=== PATIENT | male | born 1950 | race Caucasian/White ===

== ENCOUNTER 2024-01-05 14:33 | Inpatient (IN) | payer MEDICARE, MEDICAID ==
[~2024-01-05] VITALS: Ht 172.7 cm; Wt 59.0 kg
[~2024-01-05 14:33] MED LIST: EPIN11.7 IH; FURO20TA4 PO; IPRA3AMP9 NEB
[2024-01-05 15:06] LABS: BASOPHILS % (AUTO) 0.2 % (0-1); EOSINOPHILS % (AUTO) 0 % (0-6); HEMATOCRIT 44.8 % (42.0-52.0); HEMOGLOBIN 14.9 g/dl (14.0-17.9); LYMPHOCYTES # (AUTO) 0.5 X10'3 (1.1-4.8); LYMPHOCYTES % (AUTO) 9.3 % (21-51); MEAN CORPUSCULAR HGB CONC 33.2 g/dL (33.0-36.5); MEAN CORPUSCULAR VOLUME 99.4 FL (78-98); MEAN PLATELET VOLUME 7.1 FL (7.4-10.4); MONOCYTES # (AUTO) 0.3 X10'3 (0-0.9); MONOCYTES % (AUTO) 6.7 % (2-12); NEUTROPHILS # (AUTO) 4.3 X10'3 (1.8-7.7); NEUTROPHILS % (AUTO) 83.8 % (42-75); PLATELET COUNT 226 X10'3 (140-440); RED BLOOD COUNT 4.51 X10'6 (4.70-6.10); RED CELL DISTRIBUTION WIDTH 15.5 % (11.5-14.5); WHITE BLOOD COUNT 5.1 X10'3 (4.5-11.0)
[2024-01-05 15:23] LABS: ALBUMIN 3.5 G/DL (3.4-5.0); ANION GAP 4 (8-16); BLOOD UREA NITROGEN 21 MG/DL (7-18); BUN/CREATININE RATIO 20.8 (10.0-20.0); CALCIUM 9.1 MG/DL (8.5-10.1); CHLORIDE 93 MMOL/L (99-107); CREATININE 1.01 MG/DL (0.60-1.10); GLUCOSE 146 MG/DL (70-104); POTASSIUM 4.8 MMOL/L (3.5-5.1); SODIUM 134 MMOL/L (135-145); TOTAL CARBON DIOXIDE 36.7 MMOL/L (24-32); eCRCL 54 ML/MIN; eGFR 72 ML/MIN
[2024-01-05] MEDS: diltiazem 5mg/ml 5ml inj. IV ONE (15:50)
[2024-01-05] MEDS: normal saline 1000ml 1,000 ML IV ONE ×2 (15:57→15:58)
[2024-01-05] MEDS ORDERED: ipratropium/albuterol 3ml nebule NEB PRN ×2 (16:00→17:20)
[2024-01-05] MEDS ORDERED: magnesium Cl slow-release 64mg tablet PO PRN (16:40)
[2024-01-05] MEDS ORDERED: magnesium sulf-water 4G/100mL 100 ML IV PRN (16:40)
[2024-01-05] MEDS ORDERED: magnesium sulf-water 2g/50mL 50 ML IV PRN (16:40)
[2024-01-05] MEDS ORDERED: potassium Cl 40MEQ/1/2NS 520ml 520 ML IV PRN (16:40)
[2024-01-05] MEDS ORDERED: potassium Cl 20 mEq SR tablet PO PRN ×2 (16:40)
[2024-01-05] MEDS ORDERED: docusate sod 100mg capsule PO PRN (16:40)
[2024-01-05] MEDS ORDERED: metoclopramide 5 mg/ml inj IV PRN (16:40)
[2024-01-05] MEDS ORDERED: morphine 2 MG/ML inj. syringe IV PRN ×2 (16:40)
[2024-01-05] MEDS ORDERED: mag hydrox/Alum hydrox/simeth 30ml oral suspension PO PRN (16:40)
[2024-01-05] MEDS ORDERED: ondansetron/PF 4mg/2ml inj IV PRN (16:40)
[2024-01-05] MEDS: diltiazem-NS 100mg/100ml 100 ML IV SCH (16:50)
[2024-01-05] MEDS: PERFLUTREN PROTEIN-A MICROSPHR (Optison) 0.22 MG/ML 3ML VIAL IV ONE (16:56)
[2024-01-05 16:57] LABS: HEMOGLOBIN A1C 5.8 % (4.5-6.2)
[2024-01-05 17:06] LABS: PRO BRAIN NATRIURETIC PEPTIDE 9745 PG/ML (0-125); THYROID STIMULATING HORMONE 5.93 ulU/ml (0.34-4.50)
[2024-01-05 17:46] LABS: BILIRUBIN,URINE SMALL (Neg); CLARITY,URINE SLIGHTLY CLOUDY (Clear); COLOR,URINE YELLOW (Yellow); GLUCOSE, URINE NEGATIVE (Neg); KETONES,URINE NEGATIVE (Neg); LEUKOCYTE ESTERASE ,URINE NEGATIVE (Neg); NITRITES, URINE NEGATIVE (Neg); OCCULT BLOOD,URINE MODERATE (Neg); PROTEIN,URINE 100 mg/dl (Neg); UROBILINOGEN,URINE 0.2 E.U/dL (0.2-1.0)
[2024-01-05 17:53] LABS: UA COLLECTION TYPE VOIDED
[2024-01-05 17:55] LABS: MUCUS STRANDS FEW /LPF (Neg); RBC,URINE TNTC /HPF (0-2); SQUAMOUS EPITHELIAL CELL,UR MODERATE /LPF (FEW)
[2024-01-05 17:56] LABS: BACTERIA,URINE 1+ /HPF (Neg); WBC,URINE 30-50 /HPF (0-4)
[2024-01-05] MEDS: enoxaparin 30mg/0.3ml syringe SUBCUT SCH (18:01)
[2024-01-05] MEDS: diltiazem CD 180mg cap (once-daily) PO SCH (18:01)
[2024-01-05] MEDS: methylPREDNISolone sod succ 125mg/2ml vial IV ONE (18:01)
[2024-01-05] MEDS: furosemide 40mg/4ml inj IV STA (18:01)
[2024-01-05] MEDS: ipratropium/albuterol 3ml nebule NEB STA (18:01)
[2024-01-05 18:04] VITALS: PULSE 88; RESP 25; O2SAT 94
[2024-01-05] MEDS: K and/or MAG REPLACEMENT MC SCH (18:29)
[2024-01-05] MEDS: RITONAVIR PO SCH (19:16)
[2024-01-05] MEDS: NIRMATRELVIR PO SCH (19:16)
[2024-01-05] MEDS: [UNRECOGNIZED DRUG - OTHER] PO SCH (19:16)
[2024-01-05] MEDS: pantoprazole 40mg Tablet.DR PO SCH (19:17)
[2024-01-05] MEDS: guaiFENesin ER 600mg tablet PO STA (19:17)
[2024-01-05 19:22] LABS: FREE T4 (FREE THYROXINE) 0.71 NG/DL (0.73-1.40)
[2024-01-05] MEDS ORDERED: heparin, porcine 5000 units/ml vial SQ SCH (20:00)
[2024-01-05] MEDS: metoprolol tartrate 1mg/ml inj IV SCH (20:07)
[2024-01-05 20:40] VITALS: PULSE 76; RESP 22; O2SAT 95
[2024-01-06] VITALS (10 sets, daily range): BP systolic 99–121; BP diastolic 56–69; PULSE 58–73; RESP 17–25; TEMP 97–98; O2SAT 91–98
[2024-01-06] MEDS ORDERED: FLUT1BLS4 INH (00:53)
[2024-01-06 03:13] LABS: BASOPHILS % (AUTO) 0.5 % (0-1); EOSINOPHILS % (AUTO) 0 % (0-6); HEMATOCRIT 40.8 % (42.0-52.0); HEMOGLOBIN 13.7 g/dl (14.0-17.9); LYMPHOCYTES # (AUTO) 0.2 X10'3 (1.1-4.8); MEAN CORPUSCULAR HEMOGLOBIN 33.4 PG (27.0-31.0); MEAN CORPUSCULAR HGB CONC 33.6 g/dL (33.0-36.5); MEAN CORPUSCULAR VOLUME 99.4 FL (78-98); MEAN PLATELET VOLUME 7.3 FL (7.4-10.4); MONOCYTES # (AUTO) 0.1 X10'3 (0-0.9); MONOCYTES % (AUTO) 1.7 % (2-12); NEUTROPHILS # (AUTO) 3.7 X10'3 (1.8-7.7); NEUTROPHILS % (AUTO) 91.8 % (42-75); PLATELET COUNT 215 X10'3 (140-440); RED BLOOD COUNT 4.11 X10'6 (4.70-6.10); RED CELL DISTRIBUTION WIDTH 15.6 % (11.5-14.5); WHITE BLOOD COUNT 4.1 X10'3 (4.5-11.0)
[2024-01-06 03:31] LABS: ALANINE AMINOTRANSFERASE 40 U/L (12-78); ALBUMIN/GLOBULIN RATIO 0.9 (1.1-1.5); ALKALINE PHOSPHATASE 85 IU/L (46-116); ANION GAP 7 (8-16); ASPARTATE AMINO TRANSFERASE 37 U/L (10-37); BILIRUBIN,TOTAL 0.8 MG/DL (0.1-1.0); BLOOD UREA NITROGEN 23 MG/DL (7-18); BUN/CREATININE RATIO 24.2 (10.0-20.0); CALCIUM 8.4 MG/DL (8.5-10.1); CHLORIDE 96 MMOL/L (99-107); CHOL/HDL RATIO 3.5 (0.00-4.99); CHOLESTEROL 152 MG/DL (0-200); CREATININE 0.95 MG/DL (0.60-1.10); GLUCOSE 142 MG/DL (70-104); HDL CHOLESTEROL 43 MG/DL (35-60); LDL CHOLESTEROL 93 MG/DL (50-100); MAGNESIUM 1.9 MG/DL (1.5-2.4); SODIUM 134 MMOL/L (135-145); TOTAL CARBON DIOXIDE 31.5 MMOL/L (24-32); TOTAL PROTEIN 6.5 G/DL (6.4-8.2); TRIGLYCERIDES 52 MG/DL (20-135); eCRCL 58 ML/MIN; eGFR 78 ML/MIN
[2024-01-06] MEDS: methylPREDNISolone sod succ 125mg/2ml vial IV SCH (08:00)
[2024-01-06] MEDS: furosemide 20 MG/2 ML vial IV SCH (08:00)
[2024-01-06] MEDS: guaiFENesin ER 600mg tablet PO SCH (08:18)
[2024-01-06] MEDS: magnesium hydroxide 30ml (MOM) UD suspension PO PRN (08:18)
[2024-01-06] MEDS: albuterol 60 PUFF/8GM Inhaler (90mcg/1 puff) IH PRN (13:23)
[2024-01-06] MEDS: levoTHYROXINE 75mcg tablet PO SCH (15:00)
[2024-01-06] MEDS: acetaminophen 325mg tablet PO PRN (20:24)
[2024-01-07] VITALS (8 sets, daily range): BP systolic 105–137; BP diastolic 56–89; PULSE 65–82; RESP 15–30; TEMP 97.1–98; O2SAT 92–99
[2024-01-07 07:57] LABS: BASOPHILS % (AUTO) 0 % (0-1); EOSINOPHILS % (AUTO) 0 % (0-6); HEMATOCRIT 39.9 % (42.0-52.0); HEMOGLOBIN 13.4 g/dl (14.0-17.9); LYMPHOCYTES # (AUTO) 0.2 X10'3 (1.1-4.8); LYMPHOCYTES % (AUTO) 2.3 % (21-51); MEAN CORPUSCULAR HEMOGLOBIN 33.3 PG (27.0-31.0); MEAN CORPUSCULAR HGB CONC 33.5 g/dL (33.0-36.5); MEAN CORPUSCULAR VOLUME 99.2 FL (78-98); MEAN PLATELET VOLUME 7.6 FL (7.4-10.4); MONOCYTES # (AUTO) 0.4 X10'3 (0-0.9); MONOCYTES % (AUTO) 4.1 % (2-12); NEUTROPHILS # (AUTO) 9.5 X10'3 (1.8-7.7); NEUTROPHILS % (AUTO) 93.6 % (42-75); PLATELET COUNT 232 X10'3 (140-440); RED BLOOD COUNT 4.02 X10'6 (4.70-6.10); RED CELL DISTRIBUTION WIDTH 15.4 % (11.5-14.5); WHITE BLOOD COUNT 10.2 X10'3 (4.5-11.0)
[2024-01-07 08:55] LABS: ALANINE AMINOTRANSFERASE 38 U/L (12-78); ALBUMIN 3.2 G/DL (3.4-5.0); ALBUMIN/GLOBULIN RATIO 0.9 (1.1-1.5); ALKALINE PHOSPHATASE 75 IU/L (46-116); ANION GAP 7 (8-16); ASPARTATE AMINO TRANSFERASE 31 U/L (10-37); BILIRUBIN,TOTAL 0.5 MG/DL (0.1-1.0); BLOOD UREA NITROGEN 42 MG/DL (7-18); BUN/CREATININE RATIO 33.1 (10.0-20.0); CALCIUM 8.4 MG/DL (8.5-10.1); CHLORIDE 91 MMOL/L (99-107); CREATININE 1.27 MG/DL (0.60-1.10); GLUCOSE 131 MG/DL (70-104); MAGNESIUM 1.9 MG/DL (1.5-2.4); POTASSIUM 5.2 MMOL/L (3.5-5.1); SODIUM 129 MMOL/L (135-145); TOTAL CARBON DIOXIDE 31.4 MMOL/L (24-32); TOTAL PROTEIN 6.6 G/DL (6.4-8.2); eCRCL 43 ML/MIN; eGFR 56 ML/MIN
[2024-01-07] MEDS ORDERED: FURO-150 PO (14:09)
[2024-01-07] MEDS ORDERED: METO-395 PO (14:09)
[2024-01-07] MEDS ORDERED: EMPA10TA PO (14:09)
[2024-01-07] MEDS ORDERED: LEVO75TA7 PO (14:09)
[2024-01-07] MEDS ORDERED: SACU1TAB PO (14:09)
[2024-01-07] MEDS ORDERED: ALBU8HFA IH (14:10)
[2024-01-07] MEDS: metoprolol succinate 25mg (24-HOUR) SR. Tablet PO SCH (14:41)
[2024-01-07] MEDS: EMPAGLIFLOZIN 10 MG TABLET PO SCH (14:43)
[2024-01-07] MEDS: MULTIVIT-MIN/FERROUS GLUCONATE 9 MG/15 ML LIQUID PO SCH (17:51)
[2024-01-07] MEDS: sacubitril/valsartan 24mg-26mg tablet PO SCH (21:43)
[2024-01-07] MEDS ORDERED: ipratropium/albuterol 3ml nebule NEB PRN (21:50)
[2024-01-08] VITALS (7 sets, daily range): BP systolic 97–115; BP diastolic 34–63; PULSE 61–73; RESP 18–28; TEMP 97.1–98.2; O2SAT 90–99
[2024-01-08 07:16] LABS: BASOPHILS # (AUTO) 0.1 X10'3 (0-0.2); BASOPHILS % (AUTO) 1.1 % (0-1); EOSINOPHILS % (AUTO) 0 % (0-6); HEMATOCRIT 41.3 % (42.0-52.0); HEMOGLOBIN 13.8 g/dl (14.0-17.9); LYMPHOCYTES # (AUTO) 0.2 X10'3 (1.1-4.8); LYMPHOCYTES % (AUTO) 1.7 % (21-51); MEAN CORPUSCULAR HEMOGLOBIN 33.1 PG (27.0-31.0); MEAN CORPUSCULAR HGB CONC 33.4 g/dL (33.0-36.5); MEAN PLATELET VOLUME 7.6 FL (7.4-10.4); MONOCYTES # (AUTO) 0.3 X10'3 (0-0.9); MONOCYTES % (AUTO) 2.8 % (2-12); NEUTROPHILS # (AUTO) 9.9 X10'3 (1.8-7.7); NEUTROPHILS % (AUTO) 94.4 % (42-75); PLATELET COUNT 223 X10'3 (140-440); RED BLOOD COUNT 4.17 X10'6 (4.70-6.10); RED CELL DISTRIBUTION WIDTH 15.1 % (11.5-14.5); WHITE BLOOD COUNT 10.5 X10'3 (4.5-11.0)
[2024-01-08 08:03] LABS: ALANINE AMINOTRANSFERASE 36 U/L (12-78); ALBUMIN 3.3 G/DL (3.4-5.0); ALKALINE PHOSPHATASE 71 IU/L (46-116); ANION GAP 6 (8-16); ASPARTATE AMINO TRANSFERASE 30 U/L (10-37); BILIRUBIN,TOTAL 0.4 MG/DL (0.1-1.0); BLOOD UREA NITROGEN 53 MG/DL (7-18); BUN/CREATININE RATIO 42.4 (10.0-20.0); CALCIUM 7.9 MG/DL (8.5-10.1); CHLORIDE 91 MMOL/L (99-107); CREATININE 1.25 MG/DL (0.60-1.10); GLUCOSE 119 MG/DL (70-104); MAGNESIUM 2.2 MG/DL (1.5-2.4); POTASSIUM 5.5 MMOL/L (3.5-5.1); SODIUM 128 MMOL/L (135-145); TOTAL CARBON DIOXIDE 31.4 MMOL/L (24-32); TOTAL PROTEIN 6.7 G/DL (6.4-8.2); eCRCL 44 ML/MIN; eGFR 57 ML/MIN
[2024-01-08] MEDS: spironolactone 25 MG tablet PO SCH (08:30)
[2024-01-08] MEDS ORDERED: APIX5TAB3 PO (12:07)
[2024-01-08] MEDS ORDERED: IPRA3AMP9 NEB (12:07)
[2024-01-08] MEDS ORDERED: PRED10TA23 PO (12:07)
[2024-01-08 12:45] LABS: ALANINE AMINOTRANSFERASE 37 U/L (12-78); ALBUMIN 3.3 G/DL (3.4-5.0); ALKALINE PHOSPHATASE 70 IU/L (46-116); ANION GAP 4 (8-16); ASPARTATE AMINO TRANSFERASE 32 U/L (10-37); BILIRUBIN,TOTAL 0.5 MG/DL (0.1-1.0); BLOOD UREA NITROGEN 50 MG/DL (7-18); BUN/CREATININE RATIO 41.3 (10.0-20.0); CHLORIDE 90 MMOL/L (99-107); CREATININE 1.21 MG/DL (0.60-1.10); GLUCOSE 114 MG/DL (70-104); POTASSIUM 5.3 MMOL/L (3.5-5.1); SODIUM 127 MMOL/L (135-145); TOTAL PROTEIN 6.6 G/DL (6.4-8.2); eCRCL 45 ML/MIN; eGFR 59 ML/MIN
[2024-01-08] MEDS ORDERED: SPIR25TA5 PO (15:31)
[2024-01-08] MEDS ORDERED: apixaban 5mg tablet PO SCH (20:00)
[2024-01-09] MEDS ORDERED: metoprolol succinate 25mg (24-HOUR) SR. Tablet PO SCH (08:00)
[2024-01-09] MEDS ORDERED: spironolactone 25 MG tablet PO SCH (08:30)
== END 2024-01-08 15:48 | disposition home health service (06) | DRG 177 ==
LOC: ER 14:34 → ED HOLD 16:31 → EDBEDREQ 23:06 → PCU 3S 01-06 05:00
PROVIDERS: ADMIT Internal Medicine; ATTEND Internal Medicine
DX: U07.1 COVID-19 (principal); I50.43 Acute on chronic combined systolic (congestive) and diastolic (congestive) heart failure; J96.00 Acute respiratory failure, unspecified whether with hypoxia or hypercapnia; I48.92 Unspecified atrial flutter; I42.0 Dilated cardiomyopathy; J44.1 Chronic obstructive pulmonary disease with (acute) exacerbation; J06.9 Acute upper respiratory infection, unspecified; I48.91 Unspecified atrial fibrillation; F17.210 Nicotine dependence, cigarettes, uncomplicated; D72.810 Lymphocytopenia; R73.9 Hyperglycemia, unspecified; D53.9 Nutritional anemia, unspecified; E78.5 Hyperlipidemia, unspecified; I50.82 Biventricular heart failure; I34.0 Nonrheumatic mitral (valve) insufficiency; Z79.899 Other long term (current) drug therapy; Z88.8 Allergy status to other drugs, medicaments and biological substances; Z91.148 Patient's other noncompliance with medication regimen for other reason
CPT/HCPCS: 36415; 71045; 80048; 80053; 80061; 81001; 82948; 83036; 83605; 83735; 83880; 84145; 84439; 84443; 84484; 85025; 87040; 87081; 87088; 87502; 87503; 87811; 93005; 93306; 94640; 94664; 94668; 94760; 96374; 97116; 97162; 97530; 99291; A4615; A6213; G0378; J1650; J1940; J2919; J3490; J7030

== ENCOUNTER 2024-04-25 13:21 | Inpatient (IN) | payer MEDICARE, MEDICAID ==
[~2024-04-25] VITALS: Ht 172.7 cm; Wt 53.0 kg
[~2024-04-25 13:21] MED LIST changes: +ALBU8HFA IH; +APIX5TAB3 PO; +EMPA10TA PO; -EPIN11.7 IH; +FLUT1BLS4 INH; +FURO-150 PO; -FURO20TA4 PO; +LEVO75TA7 PO; +METO-395 PO; +SACU1TAB PO; +SPIR25TA5 PO
[2024-04-25 14:00] LABS: BASOPHILS % (AUTO) 0.3 % (0-1); EOSINOPHILS % (AUTO) 0.2 % (0-6); HEMATOCRIT 43.7 % (42.0-52.0); HEMOGLOBIN 14.7 g/dl (14.0-17.9); LYMPHOCYTES # (AUTO) 0.6 X10'3 (1.1-4.8); MEAN CORPUSCULAR HGB CONC 33.7 g/dL (33.0-36.5); MEAN PLATELET VOLUME 6.5 FL (7.4-10.4); MONOCYTES # (AUTO) 0.6 X10'3 (0-0.9); MONOCYTES % (AUTO) 9.7 % (2-12); NEUTROPHILS # (AUTO) 4.5 X10'3 (1.8-7.7); NEUTROPHILS % (AUTO) 78.8 % (42-75); PLATELET COUNT 298 X10'3 (140-440); RED BLOOD COUNT 4.46 X10'6 (4.70-6.10); RED CELL DISTRIBUTION WIDTH 18.2 % (11.5-14.5); WHITE BLOOD COUNT 5.8 X10'3 (4.5-11.0)
[2024-04-25] MEDS: normal saline 1000ml 1,000 ML IV SCH ×2 (14:38→17:15)
[2024-04-25 15:03] LABS: ALANINE AMINOTRANSFERASE 15 U/L (12-78); ALBUMIN 3.5 G/DL (3.4-5.0); ALBUMIN/GLOBULIN RATIO 0.9 (1.1-1.5); ALKALINE PHOSPHATASE 86 IU/L (46-116); ANION GAP 9 (8-16); ASPARTATE AMINO TRANSFERASE 18 U/L (10-37); BILIRUBIN,TOTAL 0.6 MG/DL (0.1-1.0); BLOOD UREA NITROGEN 14 MG/DL (7-18); BUN/CREATININE RATIO 19.4 (10.0-20.0); CALCIUM 8.8 MG/DL (8.5-10.1); CHLORIDE 100 MMOL/L (99-107); CREATININE 0.72 MG/DL (0.60-1.10); GLUCOSE 92 MG/DL (70-104); LIPASE 12 U/L (16-77); POTASSIUM 4.4 MMOL/L (3.5-5.1); SODIUM 138 MMOL/L (135-145); TOTAL CARBON DIOXIDE 28.9 MMOL/L (24-32); TOTAL PROTEIN 7.3 G/DL (6.4-8.2); eCRCL 69 ML/MIN; eGFR > 90 ML/MIN
[2024-04-25] MEDS ORDERED: iohexol 300mg/ml 100ml inj. ONE (15:17)
[2024-04-25] MEDS ORDERED: HYDROcodone/acetaminophen 5mg/325mg tablet PO PRN (16:30)
[2024-04-25] MEDS ORDERED: magnesium sulf-water 4G/100mL 100 ML IV PRN (16:30)
[2024-04-25] MEDS ORDERED: potassium Cl 20 mEq SR tablet PO PRN (16:30)
[2024-04-25] MEDS ORDERED: magnesium Cl slow-release 64mg tablet PO PRN (16:30)
[2024-04-25] MEDS ORDERED: acetaminophen 325mg tablet PO PRN ×2 (16:30)
[2024-04-25] MEDS ORDERED: ondansetron/PF 4mg/2ml inj IV PRN (16:30)
[2024-04-25] MEDS ORDERED: HYDROcodone/acetaminophen 10/325mg tab PO PRN (16:30)
[2024-04-25] MEDS ORDERED: magnesium sulf-water 2g/50mL 50 ML IV PRN (16:30)
[2024-04-25] MEDS ORDERED: potassium Cl 40MEQ/1/2NS 520ml 520 ML IV PRN (16:30)
[2024-04-25] MEDS ORDERED: morphine 2 MG/ML inj. syringe IV PRN ×2 (16:30)
[2024-04-25] MEDS: nicotine 21mg patch - 24 hr TD SCH (17:15)
[2024-04-25] MEDS: CefTRIAXone 2gm/D5W 50ml BAG 50 ML IV ONE (17:15)
[2024-04-25 18:34] LABS: BILIRUBIN,URINE NEGATIVE (Neg); CLARITY,URINE CLEAR (Clear); COLOR,URINE YELLOW (Yellow); GLUCOSE, URINE NEGATIVE (Neg); KETONES,URINE TRACE mg/dl (Neg); LEUKOCYTE ESTERASE ,URINE NEGATIVE (Neg); NITRITES, URINE NEGATIVE (Neg); OCCULT BLOOD,URINE TRACE-INTACT (Neg); PROTEIN,URINE NEGATIVE (Neg)
[2024-04-25 18:36] LABS: UA COLLECTION TYPE NON-SPECIFIED
[2024-04-25 19:05] LABS: BACTERIA,URINE FEW /HPF (Neg); CAL OXALATE CRYSTALS 1+ /HPF (NEGATIVE); RBC,URINE 0-2 /HPF (0-2); SQUAMOUS EPITHELIAL CELL,UR FEW /LPF (FEW); WBC,URINE 0-4 /HPF (0-4)
[2024-04-25] MEDS ORDERED: iohexol 350MG/ML 100ml bottle IV ONE (20:05)
[2024-04-25] MEDS: heparin, porcine 5000 units/ml vial SQ SCH (20:34)
[2024-04-25 22:11] VITALS: BP 162/74; PULSE 79; RESP 18; TEMP 97.2; O2SAT 92
[2024-04-25] MEDS: albuterol 2.5 MG/3 ML nebule NEB PRN (22:30)
[2024-04-25 22:36] VITALS: PULSE 84; RESP 16; O2SAT 89
[2024-04-25 22:42] VITALS: PULSE 79; RESP 16
[2024-04-26] VITALS (13 sets, daily range): BP systolic 149–174; BP diastolic 60–71; PULSE 65–92; RESP 16–20; TEMP 97.3–98.6; O2SAT 90–95
[2024-04-26 05:08] LABS: BASOPHILS % (AUTO) 0.3 % (0-1); EOSINOPHILS % (AUTO) 0.2 % (0-6); HEMATOCRIT 41.6 % (42.0-52.0); LYMPHOCYTES # (AUTO) 0.6 X10'3 (1.1-4.8); LYMPHOCYTES % (AUTO) 11.4 % (21-51); MEAN CORPUSCULAR HEMOGLOBIN 33.4 PG (27.0-31.0); MEAN CORPUSCULAR HGB CONC 33.7 g/dL (33.0-36.5); MEAN CORPUSCULAR VOLUME 99.1 FL (78-98); MEAN PLATELET VOLUME 6.8 FL (7.4-10.4); MONOCYTES # (AUTO) 0.6 X10'3 (0-0.9); NEUTROPHILS # (AUTO) 4.2 X10'3 (1.8-7.7); NEUTROPHILS % (AUTO) 77.1 % (42-75); PLATELET COUNT 302 X10'3 (140-440); RED BLOOD COUNT 4.19 X10'6 (4.70-6.10); RED CELL DISTRIBUTION WIDTH 17.7 % (11.5-14.5); WHITE BLOOD COUNT 5.4 X10'3 (4.5-11.0)
[2024-04-26 05:20] LABS: ANION GAP 7 (8-16); BLOOD UREA NITROGEN 12 MG/DL (7-18); BUN/CREATININE RATIO 17.4 (10.0-20.0); CALCIUM 8.5 MG/DL (8.5-10.1); CHLORIDE 101 MMOL/L (99-107); CREATININE 0.69 MG/DL (0.60-1.10); GLUCOSE 64 MG/DL (70-104); POTASSIUM 4.1 MMOL/L (3.5-5.1); SODIUM 138 MMOL/L (135-145); eCRCL 71 ML/MIN; eGFR > 90 ML/MIN
[2024-04-26] MEDS: albuterol 2.5 MG/3 ML nebule NEB SCH (11:15)
[2024-04-26] MEDS ORDERED: APIX5TAB3 PO (17:45)
[2024-04-26] MEDS ORDERED: METO-395 PO (17:45)
[2024-04-26] MEDS ORDERED: SACU1TAB PO (17:45)
[2024-04-26] MEDS ORDERED: FURO-150 PO (17:45)
[2024-04-26] MEDS ORDERED: EMPA10TA PO (17:45)
[2024-04-26] MEDS ORDERED: FLUT1BLS4 INH (17:45)
[2024-04-26] MEDS ORDERED: SPIR25TA5 PO (17:45)
[2024-04-26] MEDS ORDERED: ALBU18HF2 INH (17:45)
[2024-04-26] MEDS ORDERED: ATR0.5NEB NEB (17:45)
[2024-04-26] MEDS ORDERED: LEVO75TA PO (17:45)
[2024-04-26] MEDS ORDERED: diatrozoate meglu/diatrozoate sod (37% iodine) 120ML oral solution PO ONE (22:20)
[2024-04-26] MEDS: diatr meglu/diatrizoate 30ml oral sol.-(3 dose) bottle PO ONE (22:59)
[2024-04-27] VITALS (17 sets, daily range): BP systolic 116–164; BP diastolic 50–66; PULSE 56–101; RESP 14–27; TEMP 97.6–98.4; O2SAT 90–96
[2024-04-27 06:19] LABS: ALBUMIN 2.9 G/DL (3.4-5.0); ANION GAP 6 (8-16); BLOOD UREA NITROGEN 12 MG/DL (7-18); BUN/CREATININE RATIO 17.9 (10.0-20.0); CALCIUM 8.5 MG/DL (8.5-10.1); CHLORIDE 102 MMOL/L (99-107); CREATININE 0.67 MG/DL (0.60-1.10); GLUCOSE 66 MG/DL (70-104); POTASSIUM 3.7 MMOL/L (3.5-5.1); SODIUM 141 MMOL/L (135-145); TOTAL CARBON DIOXIDE 32.9 MMOL/L (24-32); eCRCL 74 ML/MIN; eGFR > 90 ML/MIN
[2024-04-27 06:25] LABS: BASOPHILS % (AUTO) 0.4 % (0-1); EOSINOPHILS % (AUTO) 0.3 % (0-6); HEMATOCRIT 36.4 % (42.0-52.0); HEMOGLOBIN 12.4 g/dl (14.0-17.9); LYMPHOCYTES # (AUTO) 0.8 X10'3 (1.1-4.8); LYMPHOCYTES % (AUTO) 17.8 % (21-51); MEAN CORPUSCULAR HEMOGLOBIN 33.1 PG (27.0-31.0); MEAN CORPUSCULAR VOLUME 97.4 FL (78-98); MEAN PLATELET VOLUME 6.8 FL (7.4-10.4); MONOCYTES # (AUTO) 0.6 X10'3 (0-0.9); MONOCYTES % (AUTO) 13.5 % (2-12); PLATELET COUNT 275 X10'3 (140-440); RED BLOOD COUNT 3.74 X10'6 (4.70-6.10); RED CELL DISTRIBUTION WIDTH 17.8 % (11.5-14.5); WHITE BLOOD COUNT 4.4 X10'3 (4.5-11.0)
[2024-04-27] MEDS ORDERED: non-formulary drug (Albuterol Sulfate (Ventolin Hfa) 2 PUFFS) INH PRN (10:05)
[2024-04-27] MEDS ORDERED: metoclopramide 5 mg/ml inj IV PRN (12:30)
[2024-04-27] MEDS ORDERED: ipratropium 0.5 MG/2.5ML nebule NEB SCH (14:00)
[2024-04-27] MEDS: ipratropium/albuterol 3ml nebule NEB SCH (15:37)
[2024-04-27] MEDS: furosemide 20MG tablet PO SCH (20:31)
[2024-04-27 21:43] LABS: PRO BRAIN NATRIURETIC PEPTIDE 5512 PG/ML (0-125)
[2024-04-28] VITALS (8 sets, daily range): BP systolic 116; BP diastolic 61; PULSE 57–77; RESP 16–18; TEMP 97.4; O2SAT 90–93
[2024-04-28 05:45] LABS: BASOPHILS % (AUTO) 0.5 % (0-1); EOSINOPHILS % (AUTO) 0.9 % (0-6); HEMATOCRIT 37.2 % (42.0-52.0); HEMOGLOBIN 12.6 g/dl (14.0-17.9); LYMPHOCYTES # (AUTO) 0.8 X10'3 (1.1-4.8); LYMPHOCYTES % (AUTO) 18.8 % (21-51); MEAN CORPUSCULAR HEMOGLOBIN 33.3 PG (27.0-31.0); MEAN CORPUSCULAR VOLUME 98.1 FL (78-98); MEAN PLATELET VOLUME 6.2 FL (7.4-10.4); MONOCYTES # (AUTO) 0.5 X10'3 (0-0.9); MONOCYTES % (AUTO) 12.4 % (2-12); NEUTROPHILS % (AUTO) 67.4 % (42-75); PLATELET COUNT 260 X10'3 (140-440); RED BLOOD COUNT 3.79 X10'6 (4.70-6.10); RED CELL DISTRIBUTION WIDTH 17.7 % (11.5-14.5); WHITE BLOOD COUNT 4.4 X10'3 (4.5-11.0)
[2024-04-28 05:55] LABS: ALBUMIN 2.7 G/DL (3.4-5.0); ANION GAP 5 (8-16); BLOOD UREA NITROGEN 6 MG/DL (7-18); BUN/CREATININE RATIO 10.3 (10.0-20.0); CALCIUM 8.1 MG/DL (8.5-10.1); CHLORIDE 102 MMOL/L (99-107); CREATININE 0.58 MG/DL (0.60-1.10); GLUCOSE 81 MG/DL (70-104); POTASSIUM 3.4 MMOL/L (3.5-5.1); SODIUM 140 MMOL/L (135-145); TOTAL CARBON DIOXIDE 33.1 MMOL/L (24-32); eCRCL 85 ML/MIN; eGFR > 90 ML/MIN
[2024-04-28] MEDS: Fluticasone/Umeclidin/Vilanter (Trelegy Ellipta 100-62.5-25) IH SCH (08:00)
[2024-04-28] MEDS: levoTHYROXINE 75mcg tablet PO SCH (08:53)
[2024-04-28] MEDS: metoprolol succinate 25mg (24-HOUR) SR. Tablet PO SCH (08:54)
[2024-04-28] MEDS: EMPAGLIFLOZIN 10 MG TABLET PO SCH (08:54)
[2024-04-28] MEDS: potassium Cl 20 mEq SR tablet PO PRN (08:54)
[2024-04-28] MEDS: sacubitril/valsartan 24mg-26mg tablet PO SCH (08:54)
[2024-04-28] MEDS: apixaban 5mg tablet PO SCH (08:54)
[2024-04-28] MEDS: spironolactone 25 MG tablet PO SCH (09:01)
== END 2024-04-28 16:13 | disposition home or self-care (01) | DRG 299 ==
LOC: ER 13:21 → ED HOLD 16:36 → ORTHO 4S 21:08 → SUR 3N 04-27 14:30
PROVIDERS: ADMIT Internal Medicine; ATTEND Internal Medicine
PROC: BW211ZZ Computerized Tomography (CT Scan) of Abdomen and Pelvis using Low Osmolar Contrast (ICD-10-PCS; principal; 2024-04-25)
DX: I70.0 Atherosclerosis of aorta (principal); E43 Unspecified severe protein-calorie malnutrition; I42.0 Dilated cardiomyopathy; I48.20 Chronic atrial fibrillation, unspecified; I50.22 Chronic systolic (congestive) heart failure; Z68.1 Body mass index [BMI] 19.9 or less, adult; D18.09 Hemangioma of other sites; I73.9 Peripheral vascular disease, unspecified; F17.210 Nicotine dependence, cigarettes, uncomplicated; I34.0 Nonrheumatic mitral (valve) insufficiency; J44.9 Chronic obstructive pulmonary disease, unspecified; E03.9 Hypothyroidism, unspecified; I48.91 Unspecified atrial fibrillation; I27.20 Pulmonary hypertension, unspecified; I50.82 Biventricular heart failure; Z88.1 Allergy status to other antibiotic agents
CPT/HCPCS: 36415; 71045; 74175; 74176; 74177; 80048; 80053; 81001; 83605; 83690; 83880; 84145; 85025; 85651; 87040; 87081; 93306; 93975; 94640; 94760; 96361; 96365; 96372; 99285; A6212; A6258; C1758; G0378; J0696; J1644; J7030; Q9963; Q9967